=== PATIENT | male | born 1980 | race Caucasian/White ===

== ENCOUNTER 2021-12-15 12:39 | Outpatient (CLI) | payer BC, SELFPAY ==
--- NOTE | 2021-12-15 13:00 | MR_ITS ---
[address] [address] Phone:?[phone] Fax:?[phone] Referring Physician Information: Bong Cunningham M.D. [address] [facility] [address] Phone:?[phone] Fax:?[phone] Patient:?Kyle Jenkins D.O.B:?1980 Sex:?Male Phone:?[phone] [facility] MRN:?[id number] Exam Date:?12/15/2021 ? EXAM: MRI LUMBAR SPINE WITHOUT CONTRAST CLINICAL INFORMATION: 41-year-old man with low back pain. TECHNICAL INFORMATION: MRI lumbar spine was obtained on 1.5 Nadia magnet including sagittal T2, T1, and STIR images. Axial T2 and T1-weighted images. INTERPRETATION: There is normal lordotic curvature of the lumbar spine. No marrow edema within the lumbar vertebral bodies. No loss of vertebral body height. The conus is at the L1 level and is normal in appearance. 2.6 cm cystic lesion in the left kidney most likely representing a renal cyst. L5-S1: No loss of disc space height or annular bulge. No central spinal canal or foraminal stenosis. The facet joints are unremarkable. L4-5: Mild degenerative disc disease with small central disc protrusion which indents the dural sac without central spinal canal stenosis. The foramen are patent and the facet joints are unremarkable. L3-4 through T12-L1: No loss of disc space height or radial bulge. No central spinal canal or foraminal stenosis. The facet joints are unremarkable. CONCLUSION: 1. Mild degenerative disc disease and small central disc protrusion at L4-5. 2. No central spinal canal stenosis or neural impingement. LPB Electronically signed on 12/16/2021 2:11:00 PM by Kwabena Frazier M.D.
== END 2021-12-15 12:40 | disposition home or self-care (01) ==
LOC: MRI 12:42
PROVIDERS: PCP Family Medicine; Visit Provider Family Medicine
DX: M54.50 Low back pain, unspecified (principal); M51.36 Other intervertebral disc degeneration, lumbar region; M51.26 Other intervertebral disc displacement, lumbar region
CPT/HCPCS: 72148